=== PATIENT | female | born 1960 | race Hispanic/Latino ===

== ENCOUNTER 2016-11-29 11:15 | Emergency (ER) | payer SELFPAY ==
[2016-11-29 12:46] LABS: Bilirubin,Urine NEG (Negative); Blood,Urine SM (Negative); Ketones,Urine NEG (Negative); Leukocyte Esterase,Urine NEG (Negative); Mucus,Urine FEW /HPF; Nitrite,Urine NEG (Negative); Protein,Urine <15 mg/dL mg/dL (Negative); Urobilinogen,Urine < 2.0 mg/dL (<2.0)
[2016-11-29] MEDS ORDERED: PERCOCET 5/325 PO ONE (15:29)
[2016-11-29] MEDS ORDERED: TORADOL IM ONE (15:29)
--- NOTE | 2016-11-29 16:02 | XRay Report ---
Lumbar spine 3 views: History: Lower back pain status post fall. Findings: Normal height of vertebral bodies. Decrease in height of L2-L3 and L5-S1 interspaces. Sclerotic adjacent articular surfaces with peripheral osteophytes suggestive severe degenerative changes. No fracture. No soft tissue calcification. Impression: Severe degenerative changes lumbar spine.
--- NOTE | 2016-11-29 16:15 | Emergency Department Report ---
ED Back Pain/Injury HPI - General Chief Complaint: Back Pain/Injury Stated Complaint: BACK PAIN Time Seen by Provider: 11/29/16 15:14 Source: patient Mode of arrival: Ambulatory Limitations: No Limitations - History of Present Illness Initial Comments: PT states she has a hx of chronic back pain due to DDD. PT states two years ago , she was living in [place] and in pain management. PT states that she was on Percocet 10 mg and getting epidurals. PT states the pain improved but has gradually returned. PT states 1.5 weeks ago, she fell while visiting [place] for a high school reunion. PT states she was walking down 3 steps and she missed the bottom step. PT states she landed on her right side on carpet. PT states since that fall her low back pain has increased and now her left low back hurts and it radiates down to L buttock. PT denies relief from OTC Motrin/ Tylenol Complaint: back pain -: Gradual Similar Symptoms Previously: Yes Radiation: buttocks Severity scale (0 -10): 9 Quality: sharp Consistency: constant Improves With: walking Worsens With: supine, sitting upright, other (pt states she can not lay on her left side ) Associated Symptoms: denies: difficulty walking, difficulty urinating, incontinence, fever/chills, nausea/vomiting - Related Data Previous Rx's Medication Instructions Recorded Last Taken Type Famotidine [Pepcid] 20 mg PO BID #20 tablet 11/29/16 Unknown Rx Ibuprofen [Motrin] 800 mg PO Q8HR PRN #20 tablet 11/29/16 Unknown Rx methOCARBAMOL [Robaxin TAB] 500 mg PO Q6H PRN #15 tablet 11/29/16 Unknown Rx Allergies Allergy/AdvReac Type Severity Reaction Status Date / Time No Known Allergies Allergy Unverified 11/29/16 11:36 ED Review of Systems ROS: Stated complaint: BACK PAIN Other details as noted in HPI Comment: All other systems reviewed and negative Constitutional: denies: chills, fever Cardiovascular: denies: chest pain Gastrointestinal: other (pt states her back pain radiates down to her buttocks and to her stomach ). denies: abdominal pain, nausea, vomiting Genitourinary: denies: dysuria, frequency Musculoskeletal: back pain Skin: denies: change in color Neurological: denies: headache, weakness ED Past Medical Hx - Past Medical History Hx Hypertension: Yes Additional medical history: CHRONIC BACK PAIN. DDD - Surgical History Hx Cholecystectomy: Yes Additional Surgical History: HYSTERECTOMY. RIGHT WRIST - Social History Smoking Status: Current Every Day Smoker Substance Use Type: Alcohol - Medications Home Medications: Home Medications Medication Instructions Recorded Confirmed Last Taken Type Famotidine [Pepcid] 20 mg PO BID #20 tablet 11/29/16 Unknown Rx Ibuprofen [Motrin] 800 mg PO Q8HR PRN #20 tablet 11/29/16 Unknown Rx methOCARBAMOL [Robaxin TAB] 500 mg PO Q6H PRN #15 tablet 11/29/16 Unknown Rx ED Physical Exam - General Limitations: No Limitations General appearance: alert, in no apparent distress, obese - Head Head exam: Present: atraumatic, normocephalic, normal inspection - Eye Eye exam: Present: normal appearance. Absent: conjunctival injection - ENT ENT exam: Present: normal exam, normal external ear exam - Neck Neck exam: Present: normal inspection, full ROM. Absent: tenderness - Respiratory Respiratory exam: Present: normal lung sounds bilaterally. Absent: respiratory distress - Cardiovascular Cardiovascular Exam: Present: regular rate, normal rhythm, normal heart sounds - GI/Abdominal GI/Abdominal exam: Present: soft, normal bowel sounds, other (scar to R abd- pt states this is from her "spider bite"). Absent: distended, tenderness, guarding , rebound - Extremities Exam Extremities exam: Present: normal inspection, full ROM - Back Exam Back exam: Present: normal inspection, full ROM, tenderness, muscle spasm, paraspinal tenderness (L ), vertebral tenderness (L spine ). Absent: CVA tenderness (R), CVA tenderness (L) - Expanded Back Exam Expanded Back exam: Positive Straight Leg Raise: Left, Negative Straight Leg Raising: Right - Neurological Exam Neurological exam: Present: alert, oriented X3, CN II-XII intact, normal gait - Psychiatric Psychiatric exam: Present: normal affect, normal mood - Skin Skin exam: Present: warm, dry, intact, normal color ED Course Vital Signs 11/29/16 11/29/16 11/29/16 11:26 15:38 17:02 Temperature 99.0 F Pulse Rate 65 70 Respiratory 17 18 18 Rate Blood Pressure 151/101 Blood Pressure 150/96 [Left] O2 Sat by Pulse 99 100 Oximetry - Reevaluation(s) Reevaluation #1: 11/29/16 16:24 PT states her pain has decreased sp toradol and 1 tablet percocet. PT is aware of the XR results. PT aware that chronic pain is not treated nursing home by EDs. PT requesting RX for Duexis. PT states when she lived in [place] and had insurance , she was on that medication. PT aware of cost of medication without insurance. PT aware that Pepcid and Motrin will be prescribed. - Pulse Oximetry Interpretation Digit-Finger Initial Pulse Oximetry Readin Actions Taken: none ED Medical Decision Making - Radiology Data Radiology results: report reviewed XR L spine- Nap - Differential Diagnosis fracture, strain Critical Care Time: No Critical care attestation.: If time is entered above; I have spent that time in minutes in the direct care of this critically ill patient, excluding procedure time. ED Disposition Clinical Impression: DDD (degenerative disc disease), lumbar Low back pain Qualifiers: Chronicity: unspecified Back pain laterality: left Sciatica presence: with sciatica Sciatica laterality: sciatica of left side Qualified Code(s): M54.42 - Lumbago with sciatica, left side Disposition: - TO HOME OR SELFCARE Is pt being admited?: No Does the pt Need Aspirin: No Condition: Stable Instructions: Sciatica (ED), Low Back Strain (ED), Acute Low Back Pain (ED), Chronic Back Pain (ED) Additional Instructions: follow up with PCP in 3-5 days - recheck your bp on your follow up You may need further imaging of you back (MRI) and evaluation by Neurosurgeon due to your pain radiating down your left leg. No driving or alcohol after taking Robaxin Prescriptions: Famotidine [Pepcid] 20 mg PO BID #20 tablet Ibuprofen [Motrin] 800 mg PO Q8HR PRN #20 tablet PRN Reason: Pain methOCARBAMOL [Robaxin TAB] 500 mg PO Q6H PRN #15 tablet PRN Reason: Muscle Spasm Referrals: PRIMARY CARE, [Primary Care Provider] - 3-5 Days MIGDALIA COLLINS MD [Staff Physician] - 3-5 Days JOSSE DOAN MD [Staff Physician] - 3-5 Days [facility] [Outside] - 3-5 Days Time of Disposition: 16:39
[2016-11-29 17:02] VITALS: BP 150/96
== END 2016-11-29 17:02 | disposition home or self-care (01) ==
LOC: ED 11:15
DX: M51.36 Other intervertebral disc degeneration, lumbar region (principal); M54.42 Lumbago with sciatica, left side; I10 Essential (primary) hypertension; G89.29 Other chronic pain; F17.200 Nicotine dependence, unspecified, uncomplicated; W10.9XXA Fall (on) (from) unspecified stairs and steps, initial encounter; Y93.89 Activity, other specified; Y99.9 Unspecified external cause status; Y92.89 Other specified places as the place of occurrence of the external cause
CPT/HCPCS: 72100; 81001; 96372; 99284; J1885